=== PATIENT | female | born 1935 | race Caucasian/White ===

== ENCOUNTER 2022-01-16 10:57 | Emergency (ER) | payer MEDICARE, OTHER ==
[~2022-01-16] VITALS: Ht 160 cm; Wt 63.0 kg
[2022-01-16] MEDS ORDERED: ASPirin 81 mg TAB PO ONE (11:30)
[2022-01-16 11:36] LABS: Basophils # (auto) 0 10 ^3/uL (0-0.2); Basophils % (auto) 0.5 % (0.0-2.0); Eosinophils # (auto) 0.2 10 ^3/uL (0-0.8); Eosinophils % (auto) 2.2 % (0.0-7.0); Hematocrit 43.8 % (36.0-46.0); Hemoglobin 14.1 g/dL (12.2-16.2); Lymphocytes # (auto) 1.8 10 ^3/uL (0.4-5.4); Lymphocytes % (auto) 23.1 % (10.0-50.0); Mean Corpuscular Hemoglobin 28.8 pg (28.0-32.0); Mean Corpuscular Hgb Conc. 32.2 g/dL (32.0-36.0); Mean Corpuscular Volume 89.4 fL (80.0-100.0); Monocytes # (auto) 0.7 10 ^3/uL (0-1.3); Monocytes % (auto) 9.5 % (0.0-12.0); Neutrophils % (auto) 64.7 % (37.0-80.0); Nucleated Red Blood Cells % 0.1 %; Red Cell Distribution Width 13.8 % (11.8-14.3); White Blood Cell 7.8 10^3/uL (4.4-10.8)
[2022-01-16 12:01] LABS: Albumin 3.2 g/dL (3.4-5.0); BUN/Creatinine Ratio 13.8; Calcium 9.1 mg/dL (8.5-10.1); Magnesium 2.3 mg/dL (1.6-2.6); Potassium 3.9 mmol/L (3.5-5.1)
[2022-01-16 12:06] LABS: Bilirubin, Total 0.3 mg/dL (0.2-1.0); Total Protein 7.3 g/dL (6.4-8.2)
[2022-01-16 12:10] LABS: INR 0.96 (0.9-1.15); Partial Thromboplastin Time 29.2 sec (24.6-33.4)
[2022-01-16] MEDS ORDERED: IOHEXOL 350 MG/ML 100ML IJ ONE (12:28)
[2022-01-16 12:42] LABS: Urine Bacteria NONE SEEN /hpf (None Seen); Urine Blood 3+ /uL (Negative); Urine Specific Gravity 1.007 (1.001-1.035); Urine WBC <1 /hpf (0 - 5)
[2022-01-16 16:06] VITALS: BP 152/76
== END 2022-01-16 15:58 | disposition home or self-care (01) ==
LOC: ER 10:57 → EDBD 10:57 → ER 15:58
DX: R07.89 Other chest pain (principal); I12.9 Hypertensive chronic kidney disease with stage 1 through stage 4 chronic kidney disease, or unspecified chronic kidney disease; N18.9 Chronic kidney disease, unspecified; Z90.49 Acquired absence of other specified parts of digestive tract; Z90.710 Acquired absence of both cervix and uterus; Z90.89 Acquired absence of other organs; Z20.822 Contact with and (suspected) exposure to COVID-19
CPT/HCPCS: 36415; 71045; 71275; 80053; 81001; 83735; 83880; 84484; 85025; 85379; 85610; 85730; 87426; 93005; 99285; Q9967

== ENCOUNTER 2023-04-08 18:20 | Emergency (ER) | payer OTHER ==
[~2023-04-08] VITALS: Ht 157.5 cm; Wt 68.1 kg
[2023-04-08 19:16] LABS: Basophils # (auto) 0 10 ^3/uL (0-0.2); Basophils % (auto) 0.4 % (0.0-2.0); Eosinophils # (auto) 0.3 10 ^3/uL (0-0.8); Eosinophils % (auto) 3.5 % (0.0-7.0); Hematocrit 40.6 % (36.0-46.0); Hemoglobin 13.5 g/dL (12.2-16.2); Lymphocytes # (auto) 2.3 10 ^3/uL (0.4-5.4); Lymphocytes % (auto) 26.9 % (10.0-50.0); Mean Corpuscular Hemoglobin 30.3 pg (28.0-32.0); Mean Corpuscular Hgb Conc. 33.3 g/dL (32.0-36.0); Monocytes # (auto) 0.6 10 ^3/uL (0-1.3); Monocytes % (auto) 7.4 % (0.0-12.0); Neutrophils # (auto) 5.2 10 ^3/uL (1.6-8.6); Neutrophils % (auto) 61.8 % (37.0-80.0); Nucleated Red Blood Cells % 0.1 %; Red Blood Cells 4.46 10^6/uL (4.0-5.20); Red Cell Distribution Width 13.8 % (11.8-14.3); White Blood Cell 8.5 10^3/uL (4.4-10.8)
[2023-04-08 19:44] LABS: Albumin 3.9 g/dL (3.2-4.8); Alkaline Phosphatase 127 U/L (46-116); Anion Gap 7 (5-15); Aspartate Aminotransferase 29 U/L (13-40); Bilirubin, Total < 0.2 mg/dL (0.2-1.0); Calcium 8.9 mg/dL (8.7-10.4); Carbon Dioxide 25 mmol/L (20-30); Chloride 109 mmol/L (98-107); Glucose 99 mg/dL (74-106); Sodium 141 mmol/L (136-145)
[2023-04-08 19:45] LABS: Alanine Aminotransferase 23 U/L (7-40); BUN/Creatinine Ratio 16.3 (10.0-20.0); Blood Urea Nitrogen 16 mg/dL (9-23); Potassium 4.7 mmol/L (3.5-5.1); Total Protein 6.3 g/dL (5.7-8.2)
[2023-04-08] MEDS ORDERED: LIDOCAINE VISCOUS 2% 15ML UD PO ONE (23:45)
[2023-04-08] MEDS ORDERED: MAALOX PLUS or MAALOX 30 ML PO ONE (23:45)
[2023-04-08] MEDS ORDERED: DONNATAL 5ml ORAL Elix (BELLADONNA ALK-PHENOBARB) PO ONE (23:45)
[2023-04-09 03:00] VITALS: BP 128/60; PULSE 110; RESP 18; TEMP 98; O2SAT 96
== END 2023-04-09 03:40 | disposition home or self-care (01) ==
LOC: EDBD 18:20 → ER 18:20
DX: I48.91 Unspecified atrial fibrillation (principal); R07.89 Other chest pain; R00.2 Palpitations; R68.84 Jaw pain; R74.8 Abnormal levels of other serum enzymes; E87.8 Other disorders of electrolyte and fluid balance, not elsewhere classified; I12.9 Hypertensive chronic kidney disease with stage 1 through stage 4 chronic kidney disease, or unspecified chronic kidney disease; N18.9 Chronic kidney disease, unspecified; Z98.890 Other specified postprocedural states
CPT/HCPCS: 36415; 71045; 80053; 84484; 85025; 93005